=== PATIENT | male | born 1995 | race Caucasian/White ===

== ENCOUNTER 2022-10-16 16:05 | Outpatient (CLI) | payer OTHER ==
--- NOTE | 2022-10-16 20:40 | XRAY Report ---
PROCEDURE: Toe(s) LT INDICATIONS: CONTUSION OF LEFT GREAT TOE TECHNIQUE: 4 views of the left toe(s) acquired. COMPARISON: None FINDINGS: Bones: Avulsion fracture of the lateral base of the distal phalanx of the left foot. No suspicious b emanuel lesions. Soft tissues: No suspicious soft tissue densities. IMPRESSION: Avulsion fracture of the lateral base of the distal phalanx of the left great toe. Reviewed by: Bairon Anthony on 10/16/2022 7:39 PM TRI Approved by: Bairon Anthony on 10/16/2022 7:39 PM TRI Station ID: [id number]
== END 2022-10-16 16:06 | disposition home or self-care (01) ==
LOC: DI 16:05
PROVIDERS: ATTEND Nurse Practitioner
DX: S92.422A Displaced fracture of distal phalanx of left great toe, initial encounter for closed fracture (principal)
CPT/HCPCS: 73660